=== PATIENT | female | born 1995 | race Asian ===

== ENCOUNTER 2024-08-03 10:20 | Observation (INO) ==
[2024-08-03] MEDS: Lactated Ringers 1000 ml BAG 1,000 ML IV ONE (11:27)
[2024-08-03 11:35] LABS: ABS Eosinophils 0.1 10^3/uL (0.0-0.5); ABS Lymphocytes 1.3 10^3/uL (1.0-4.8); ABS Monocytes 0.4 10^3/uL (0.0-0.9); ABS Neutrophils 3.1 10^3/uL (1.5-7.6); Eosinophil % 1.8 %; Hematocrit 40.8 % (35-45); Hemoglobin 13.9 g/dL (11.5-14.3); Lymphocyte % 26.4 %; Mean Corpuscular Hemoglobin 29.8 pg (27-33); Mean Corpuscular Hgb Conc 34.1 g/dL (31-36); Mean Corpuscular Volume 87.3 fL (80-97); Mean Platelet Volume 9.2 fL (7.5-11.2); Nucleated Red Blood Cells % 0.1 %/100WBC (0.0-0.8); Platelet Count 224 10^3/uL (150-450); Red Blood Count 4.67 10^6/uL (3.63-4.92); Red Cell Distribution Width 13.9 % (12-17); White Blood Count 4.8 10^3/uL (3.8-11.8)
[2024-08-03 12:09] LABS: Acetaminophen < 15 mcg/mL; Anion Gap 8 mmol/L (2-16); Blood Urea Nitrogen 16 mg/dL (6-24); CO2 Carbon Dioxide 27 mmol/L (22-32); Calcium 9.1 mg/dL (8.6-10.3); Chloride 103 mmol/L (101-111); Creatinine, Serum 0.61 mg/dL (0.51-0.95); Glucose 98 mg/dL (70-100); Potassium 3.7 mmol/L (3.5-5.0); Sodium 138 mmol/L (135-145); eGFR CKD-EPI 123.3 (>60)
[2024-08-03 12:11] LABS: C Reactive Protein 1.42 mg/L (<8.01)
[2024-08-03 12:39] LABS: ALT 606 U/L (7-52); AST 204 U/L (13-39); Albumin 4.5 g/dL (3.5-5.7); Albumin/Globulin Ratio 1.7 (1-3); Alkaline Phosphatase 101 U/L (35-149); GGTP 404 U/L (9-64.0); Globulin 2.6 g/dL (2-4); Indirect Bilirubin 1.5 mg/dL (0.3-1.0); LDL Cholesterol Direct 164 mg/dL; Total Bilirubin 2.5 mg/dL (0.2-1.0); Total Protein 7.1 g/dL (6.4-8.9)
[2024-08-03] MEDS: Ondansetron 4 mg VIAL 2 MG/ML 2 ml VIAL IV ONE (14:45)
[2024-08-03 20:20] LABS: INR 1.03 (0.85-1.14)
[2024-08-03 21:12] LABS: Albumin 4.4 g/dL (3.5-5.7); Albumin/Globulin Ratio 2.1 (1-3); Direct Bilirubin 0.8 mg/dL (0.03-0.18); Globulin 2.1 g/dL (2-4); Indirect Bilirubin 1.4 mg/dL (0.3-1.0); Total Bilirubin 2.2 mg/dL (0.2-1.0); Total Protein 6.5 g/dL (6.4-8.9)
[2024-08-03 21:16] LABS: Hepatitis B Surface Antigen Nonreactive (Nonreactive)
[2024-08-03 21:21] LABS: Hepatitis A Ab IgM Negative (Negative)
[2024-08-03 21:22] LABS: Hepatitis B Core IgM Nonreactive (Nonreactive)
[2024-08-03 21:24] LABS: Ferritin 724.3 ng/mL (11-307)
[2024-08-03 21:33] LABS: Hepatitis C Antibody Negative (Negative)
[2024-08-04] MEDS: Ondansetron 4 mg VIAL 2 MG/ML 2 ml VIAL IV PRN (01:51)
[2024-08-04 06:52] LABS: Calcium 8.7 mg/dL (8.6-10.3); Creatinine, Serum 0.6 mg/dL (0.51-0.95); Potassium 3.7 mmol/L (3.5-5.0); eGFR CKD-EPI 123.8 (>60)
[2024-08-04 07:08] LABS: Albumin 4.2 g/dL (3.5-5.7); Albumin/Globulin Ratio 1.9 (1-3); Globulin 2.2 g/dL (2-4); Total Bilirubin 2.2 mg/dL (0.2-1.0); Total Protein 6.4 g/dL (6.4-8.9)
[2024-08-04] MEDS: KCL 20 MEQ/100 ML IVPREMIX 20 MEQ/100 ML BAG IV SCH (12:33)
[2024-08-05 07:08] LABS: Albumin 4.3 g/dL (3.5-5.7); Albumin/Globulin Ratio 1.8 (1-3); Creatinine, Serum 0.6 mg/dL (0.51-0.95); Globulin 2.4 g/dL (2-4); Magnesium 2.2 mg/dL (1.9-2.7); Potassium 3.9 mmol/L (3.5-5.0); Total Bilirubin 1.6 mg/dL (0.2-1.0); Total Protein 6.7 g/dL (6.4-8.9); eGFR CKD-EPI 123.8 (>60)
[2024-08-05] MEDS: Polyethylene Glycol 3350 17 GM PACKET PO SCH (09:21)
[2024-08-05 10:29] VITALS: BP 101/64
[2024-08-05 11:35] LABS: EBV Capsid Ag IgG Ab Positive (Negative); EBV Capsid Ag IgM Ab Negative (Negative); Epstein-Barr Nuclear Antigen Positive (Negative)
[2024-08-06 13:20] LABS: Liver/Kidney Microsomes Ab <5.0 U
[2024-08-06 15:05] LABS: CMV DNA DETECT/QT, P Undetected IU/mL (Undetected)
[2024-08-06 22:53] LABS: HSV 1 PCR, B Negative (Negative); HSV 2 PCR, B Negative (Negative)
[2024-08-08 21:22] LABS: F-Actin Ab, IgG, Serum <4.0 U
== END 2024-08-05 14:00 | disposition home or self-care (01) ==
LOC: ED 10:20 → EDHOLD 10:20 → SUATTDRO 14:35 → MED 08-04 08:52
PROVIDERS: ADMIT Internal Medicine; ATTEND Internal Medicine